=== PATIENT | male | born 1965 | race Caucasian/White ===

== ENCOUNTER 2016-04-05 09:33 | Emergency (ER) | payer BC, OTHER ==
[~2016-04-05] VITALS: Ht 175.3 cm; Wt 95.5 kg
[2016-04-05 09:36] VITALS: BP 157/63; PULSE 98; RESP 18; TEMP 97.8; O2SAT 96
--- NOTE | 2016-04-05 10:33 | PD ---
HPI Chief Complaint: Laceration/Skin Injury Time Seen by Provider: 10:33 Travel History International Travel<30 days: No Contact w/Intl Traveler<30days: No Traveled to known affect area: No History of Present Illness HPI 51-year-old male presents to the emergency Department with complaint of a laceration to his left forehead area just above his left eyebrow obtained from running into a raza lift while looking down at his Phone and walking. He did not lose consciousness. Denies neck pain. Denies nausea, vomiting. Denies headache, lightheadedness, dizziness. Denies focal deficits or weakness. Denies confusion, disorientation, change in mentation. Denies anticoagulants. Is not up-to-date on his tetanus vaccination. Has not taken any medications or tried any treatments to a base symptoms. Has held pressure to control bleeding. Allergies to ibuprofen and Motrin. History of hypertriglyceridemia. No other modifying factors or associated signs and symptoms. PFSH Past Medical History Hx Anticoagulant Therapy: No Cardiovascular Problems: No Chemotherapy: No Cerebrovascular Accident: No Diabetes: No Respiratory: No Social History Tobacco Use: No Allergies-Medications (Allergen,Severity, Reaction): Coded Allergies: Ibuprofen (Verified Adverse Reaction, Intermediate, 04/05/16) Motrin (Verified Adverse Reaction, Intermediate, 04/05/16) Reported Meds & Prescriptions Reported Meds & Active Scripts Active No Active Prescriptions or Reported Medications Review of Systems Except as stated in HPI: all other systems reviewed are Neg Physical Exam Narrative GENERAL: Well-nourished, well-developed male patient, in no acute distress SKIN: Warm and dry. Approximately 2 cm laceration to the left medial forehead just above the left eyebrow; without erythema, edema; minimal amount of bright red drainage. HEAD: Atraumatic. Normocephalic. EYES: Pupils equal and round at 3 mm with brisk reaction. No scleral icterus. No injection or drainage. No raccoon eyes. No orbital tenderness on palpation bilaterally. ENT: Mucosa pink and moist. No erythema or exudates. No uvular edema. No uvular , palatal, or tonsillar deviation. Airway patent. Nares without nasal blood, purulent drainage or septal hematoma. No rhinorrhea. EARS: Bilateral pinnae and external canals appear within normal limits. Bilateral tympanic membranes without erythema, dullness, hemotympanum or perforation. No otorrhea. No huang signs. NECK: Moving freely. CARDIOVASCULAR: Regular rate. RESPIRATORY: No accessory muscle use. GASTROINTESTINAL: Round. MUSCULOSKELETAL: No obvious deformities. No clubbing. No cyanosis. No edema. NEUROLOGICAL: Awake and alert. Oriented 3. No obvious cranial nerve deficits. Motor grossly within normal limits. Normal speech. Moves all extremities. 5/5 strength to all extremities. Sensory intact. PSYCHIATRIC: Appropriate mood and affect; insight and judgment normal. Data Data Last Documented VS Vital Signs Date Time Temp Pulse Resp B/P Pulse Ox O2 Delivery O2 Flow Rate FiO2 04/05/16 09:36 97.8 98 18 157/63 96 Room Air Orders Tetanus/Diphtheria Tox Adult (Tetanus/Di (04/05/16 10:45) Wound Care (04/05/16 10:46) MDM Medical Decision Making Medical Screen Exam Complete: Yes Emergency Medical Condition: Yes Medical Record Reviewed: Yes Differential Diagnosis Laceration, contusion, abrasion Narrative Course 51-year-old male with a laceration to his medial forehead just above the left eyebrow. He ran into a forklift and denies loss of consciousness. Denies anticoagulants. The patient admits to hitting their head, but denies loss of consciousness. Denies nausea, vomiting. On physical exam the patient is without raccoon eyes, huang signs, rhinorrhea, or hemotympanum. I do not suspect open or depressed skull fracture, and the patient has no signs of basilar skull fracture. [place] CT Head Injury Rule suggests a head CT is not necessary for this patient and clears the patient for head injury without imaging. I recommended sutures and the patient declined, requesting Steri- Strips and Dermabond; he wanted to minimize suture murillo. See my procedure note for wound care. Ibuprofen prescribed for home. Patient is medically cleared and stable for discharge. Discussed reasons to return to the emergency department. Instructed patient to follow up with primary care provider. Patient agrees with treatment plan. The patients vital signs are stable and the patient is stable for outpatient follow-up and treatment. Patient discharged home, stable and in no acute distress. Procedures Procedure Narrative LACERATION LOCATION: Left medial forehead just above the left eyebrow LENGTH: 2 cm Closed with Steri-Strips and Dermabond REPAIR: The area of the laceration was prepped with normal saline. The wound was copiously irrigated and explored without evidence of foreign body, tendon injury or neurovascular injury. The wound was closed using Steri-Strips and Dermabond. This was a single layer repair. A sterile dressing was applied. The patient was advised to keep the dressing clean and dry. Patient tolerated the procedure well. Diagnosis Primary Impression: Facial laceration Qualified Code: S01.81XA - Facial laceration, initial encounter Referrals: Primary Care Physician Patient Instructions: Facial Laceration (ED), General Instructions, Steristrips (ED) Departure Forms: Tests/Procedures, Work Release Enter return to work date: Apr 06, 2016 Additional Instructions: Keep area clean and dry for 7 days Tylenol as directed and as needed for pain and inflammation Ice pack to area as needed to decrease pain Follow-up with primary care provider Return to the emergency department immediately with worsening of symptoms Med/Other Pt SpecificInfo: Prescription(s) given Scripts No Active Prescriptions or Reported Meds Disposition: 01 DISCHARGE HOME Condition: Stable Denice Gaines Apr 05, 2016 10:33
[2016-04-05] MEDS ORDERED: TETANUS/DIPHTHERIA TOXOID ADULT 0.5 ML VIAL IM ONE (10:45)
== END 2016-04-05 11:03 | disposition home or self-care (01) ==
LOC: NEPB 09:33
DX: S01.81XA Laceration without foreign body of other part of head, initial encounter (principal); W22.8XXA Striking against or struck by other objects, initial encounter; Y93.01 Activity, walking, marching and hiking; Z23 Encounter for immunization
CPT/HCPCS: 12011; 90471; 90714